=== PATIENT | male | born 1985 | race Caucasian/White ===

== ENCOUNTER 2020-05-16 05:34 | Emergency (ER) | payer SELFPAY ==
--- NOTE | 2020-05-16 05:55 | ERPHSYRPT ---
- History of Present Illness Time Seen by Provider: 05/16/20 05:40 Patient Subjective Stated Complaint: pt comes in via police for medical clearance before skilled nursing. pt states he has drank one mixed drink. pt states he took 1 Xanax at 0140. Triage Nursing Assessment: pt is alert and oriented. pt is breathing easily. pt is cooperative. pt appears drowsy but is easily aroused. Physician History: Patient presents with a long [employer] for medical clearance prior to skilled nursing. He was found in an altered state wandering around the road disoriented to place and in person Timing/Duration: today Severity: moderate Associated Symptoms: denies symptoms Allergies/Adverse Reactions: No Known Drug Allergies Allergy (Unverified 05/16/20 05:44) Home Medications: No Reportable Medications [No Reported Medications] 05/16/20 [History] Immunizations Up to Date: Yes Travel Risk - International Travel Have you traveled outside of the country in past 3 weeks: No - Coronavirus Screening Are you exhibiting any of the following symptoms?: No Close contact with a COVID-19 positive Pt in past 14-21 Days: No - Review of Systems All Other Systems: Unable due to condition - Past Medical History Pertinent Past Medical History: Yes Neurological History: No Pertinent History ENT History: No Pertinent History Cardiac History: Hypertension Respiratory History: No Pertinent History Endocrine Medical History: No Pertinent History Musculoskeletal History: No Pertinent History GI Medical History: No Pertinent History History: No Pertinent History Psycho-Social History: No Pertinent History Male Reproductive Disorders: No Pertinent History - Past Surgical History Past Surgical History: Yes Neuro Surgical History: No Pertinent History Cardiac: No Pertinent History Respiratory: No Pertinent History Gastrointestinal: Hernia Repair Genitourinary: No Pertinent History Musculoskeletal: No Pertinent History Male Surgical History: No Pertinent History - Social History Smoking Status: Never smoker Drug Use: narcotics - Nursing Vital Signs Nursing Vital Signs: Initial Vital Signs Temperature 97.9 F 05/16/20 05:37 Pulse Rate 95 H 05/16/20 05:37 Respiratory Rate 18 05/16/20 05:37 Blood Pressure 155/94 05/16/20 05:37 O2 Sat by Pulse Oximetry 96 05/16/20 05:37 Pain Scale Pain Intensity 2 - Physical Exam General Appearance: mild distress, alert Eye Exam: PERRL/EOMI, eyes nml inspection Ears, Nose, Throat Exam: normal ENT inspection, TMs normal, pharynx normal, moist mucous membranes Neck Exam: normal inspection, non-tender, supple, full range of motion Respiratory Exam: normal breath sounds, lungs clear, No respiratory distress Cardiovascular Exam: regular rate/rhythm, normal heart sounds, normal peripheral pulses Gastrointestinal/Abdomen Exam: soft, normal bowel sounds, No tenderness, No mass Back Exam: normal inspection, normal range of motion, No CVA tenderness, No vertebral tenderness Extremity Exam: normal inspection, normal range of motion, pelvis stable Neurologic Exam: intoxicated appearance, No motor deficits Skin Exam: normal color, warm, dry, No rash Lymphatic Exam: No adenopathy SpO2: 96 - Course Nursing assessment & vital signs reviewed: Yes - Progress Progress: improved Progress Note: 05/16/20 05:54 And is judged to be medically stable and cleared for incarceration - Departure Departure Disposition: Senior Care/[facility] Clinical Impression: Substance abuse Condition: Stable Critical Care Time: No Referrals: [facility] [Primary Care Provider] -
[2020-05-16 06:03] VITALS: BP 163/94; PULSE 93; O2SAT 98
== END 2020-05-16 06:03 | disposition home or self-care (01) ==
LOC: ED 05:34
DX: Z02.89 Encounter for other administrative examinations (principal); F15.10 Other stimulant abuse, uncomplicated
CPT/HCPCS: 99283